=== PATIENT | male | born 1970 | race Asian ===

== ENCOUNTER → 2017-01-03 | Outpatient (CLI) | payer BC ==
--- NOTE | ~2017-01-03 | ST ---
Unit #: [id number] #: [id number] Patient: CARLOS BARRIENTOS [id number] [address] [address] [id number] O MR#: [id number] NAME: CARLOS BARRIENTOS. : 1970 SEX: M STUDY DATE/TIME: 01/03/2017 UNIT: [facility] ROOM: STUDY DESCRIPTION: Cardiac stress test Attending Physician: Salome Zayas M.D. Referring Physician: Salome Zayas M.D. Primary Care Physician: Priscilla Green M.D. CARDIOLOGY REPORT EXAM Exercise Cardiolite stress test. PROCEDURE Baseline EKG normal sinus rhythm with a ventricular rate of 72 beats per minute, mild left atrial abnormality, poor R wave progression, mild left ventricular hypertrophy, early repolarization. The patient walked on the treadmill for 10 minutes utilizing Boris protocol, achieving a work level of 11.70 METS. The patient achieved 95% of the maximum target heart rate at 166 beats per minute with a maximum blood pressure response of 182/82 mmHg. EKG during the test showed some nonspecific ST-T wave abnormalities and T wave inversion in the inferior leads. No acute ischemic changes. The patient had no complaints of chest pain, palpitations or dizziness. Had increased shortness of breath and fatigue which resolved in the recovery phase. IMPRESSION 1. Functional class 3 with a workload of 11.70 METS. 2. The patient walked for 10 minutes, achieving 95% of the maximum target heart rate at 166 beats per minute, with a maximum blood pressure response of 182/82 mmHg. 3. EKG during the test showed some T wave inversion in the lateral leads and some nonspecific changes, otherwise unremarkable. 4. It is noted the patient's blood pressure decreased down to 150/80 mmHg at the end of the recovery phase. 5. The patient had no complaints of chest pain, palpitations or dizziness. Had increased shortness of breath and fatigue which resolved in the recovery phase. 6. Cardiolite was injected at maximum target heart rate. Radionuclide test pending. The patient had a good exercise tolerance. Dictated by... Evelyn HicksP.[email or web address] for Bakari Lazo/carisa TD: 01/03/2017 10:47 JOB #: [id number] Unit #: [id number] #: [id number] Patient: CARLOS BARRIENTOS CC: Priscilla Green M.D. [facility] CARDIOLOGY REPORT Page 1 of 1 X Nelida Field APRN CARDIOLOGY REPORT
--- NOTE | ~2017-01-03 | TH ---
Unit #: [id number] #: [id number] Patient: CARLOS BARRIENTOS [id number] [address] [address] [id number] O MR#: [id number] NAME: CARLOS BARRIENTOS. : 1970 SEX: M STUDY DATE/TIME: UNIT: [facility] ROOM: STUDY DESCRIPTION: Nuclear Study Attending Physician: Salome Zayas M.D. Referring Physician: Salome Zayas M.D. Primary Care Physician: Priscilla Green M.D. CARDIOLOGY REPORT EXAM Exercise Cardiolite Stress Test - Nuclear Portion DESCRIPTION Using technetium 99m labeled Cardiolite, rest and stress SPECT images were obtained. Multiple SPECT images were obtained in various views including horizontal and vertical long axis and short axis views of the left ventricle. Images were obtained by gated SPECT method. Patient was administered 11.48 mCi of Cardiolite at rest. Patient was administered 31.7 mCi of Cardiolite at peak exercise. Total exercise time is 10 minutes. On the stress images, there is normal perfusion noted. The rest images show normal perfusion. Comparing rest and stress images, there is no stress-induced ischemia noted. The left ventricular ejection fraction is calculated to be 70%. There is no focal wall motion abnormality seen. CONCLUSION 1. No stress-induced ischemia noted. 2. The left ventricular ejection fraction is calculated to be 70%. 3. There is no focal wall motion abnormality seen. 4. Normal exercise Cardiolite stress test. Dictated by... Bakari Lazo TD: 01/03/2017 11:38 JOB #: [id number] Unit #: [id number] #: [id number] Patient: CARLOS BARRIENTOS CARDIOLOGY REPORT Page 1 of 1 X Salome Zayas MD <ELECTRONICALLY SIGNED> 02/07/17 1524 CARDIOLOGY REPORT
== END | disposition home or self-care (01) ==
LOC: CNUC 08:05
DX: I35.1 Nonrheumatic aortic (valve) insufficiency (principal); R07.9 Chest pain, unspecified; E78.5 Hyperlipidemia, unspecified; I10 Essential (primary) hypertension
CPT/HCPCS: 78452; 93017; A9500